=== PATIENT | male | born 1975 | race Caucasian/White ===

== ENCOUNTER 2024-06-20 06:18 | Emergency (ER) | payer BC ==
--- OUTSIDE RECORDS SUMMARY | 2024-06-20 06:21 | XMS REPORT | Continuity of Care Document ---
Author Name Unknown Address [address] [facility] [address] [place] [address] [facility] Address [address] [facility] [address] [place] [address] Care Team Providers Care Shank Faker Name Role Phone KVNG FLOOD Attending Clinician Unavailab NORA Rivera Attending Clinician Unavailable [id number] Attending Clinician Unavailable DR VERONICA RALPH Attending Clinician Unavailable DR VERONICA RALPH Admitting Clinician Unavailable Payers Payer Name Policy Type Policy Number Effective Date Expirati on Date Source [facility] 2 [id number] 2023 00:00:00 [id number] [id number] 00:00:00 Problems Condition Name Condition Details Condition Category Status Onset Date Resolution Date Last Treatment Date Treating Clinician Comments Source Well adult exam Well adult exam Disease Active 07-04 00:00: 00 Arti velasquez Primary hypertensi on Primary hypertensi on Disease Active 07-04 00:00: 00 Arti velasquez JACE (obstructi ve sleep apnea) JACE (obstructi ve sleep apnea) Disease Active 07-04 00:00: 00 Arti velasquez Allergies, Adverse Reactions, Alerts Allergy Name Allergy Type Status Severity Reaction(s) Onset Date Inactive Date Treating Clinician Comments Source No Known Drug Allergie s DA Active [facility] Social History Social Habit Start Date Stop Date Quantity Comments Source Gender identity Netta noah Armendariz - External Sexual orientation Nomi riki Armendariz - External History of tobacco use Snuff User Arti Armendariz - External Alcohol intake 2023-08-11 00:00:00 2023-08-11 00:00:00 Current drinker of alcohol (finding) Arti Armendariz - External History of Social function 2023-07-31 00:00:00 2023-07-31 00:00:00 Arti Armendariz - External Alcohol Comment 2023-06-30 00:00:00 2023-06-30 00:00:00 rarely Arti Armendariz - External Cigarettes smoked current (pack per day) - Reported 2023-06-30 00:00:00 2023-06-30 00:00:00 Arti Armendariz - Trina Cigarette pack-years 2023-06-30 00:00:00 2023-06-30 00:00:00 Arti Armendariz - External Tobacco use and exposure 2023-06-30 00:00:00 2023-06-30 00:00:00 User of smokeless tobacco Arti Armendariz - External Sex Assigned At 1975 00:00:00 1975 00:00:00 Arti Armendariz - Trina Smoking Status Start Date Stop Date Source Ex-smoker 2023-06-30 00:00:00 2023-06-30 00:00:00 Nomi riki Armendariz - External Medications Ordered Medication Name Filled Medication Name Start Date Stop Date Current Medication? Ordering Clinician Indication Dosage Frequency Signature (SIG) Comments Components Source Lisinopril 40 MG oral Tablet 2022-10 15:16: 34 08-11 00:00 :00 No Take by mouth. Arti velasquez Amlodipine Besylate 10 MG oral Tablet 2022-10 00:00: 00 Yes [id number] 10mg Take 1 tablet (10 mg total) by mouth daily. Arti velasquez Duloxetine HCl [address] Particles 2022-10 0 00:00: 00 Yes [id number] 30mg Take 1 capsule (30 mg total) by mouth daily. Arti velasquez Telmisartan 80 MG oral Tablet 07-04 08:25: 53 07-04 00:00 :00 No 80mg Take 1 tablet (80 mg total) by mouth daily. Arti velasquez Amlodipine Besylate 10 MG oral Tablet 07-04 08:25: 53 07-04 00:00 :00 No 10mg Take 1 tablet (10 mg total) by mouth daily. Arti velasquez Duloxetine HCl [address] Particles 07-04 08:: 07-04 00:00 :00 No 30mg Take 1 capsule (30 mg total) by mouth daily. Arti velasquez Duloxetine HCl [address] Particles 07-04 08:: 53 07-04 00:00 :00 No 60mg Take 1 capsule (60 mg total) by mouth daily. Arti velasquez Amlodipine Besylate 10 MG oral Tablet 07-04 00:00: 00 Yes [id number] 10mg Take 1 tablet (10 mg total) by mouth daily. Arti velasquez Telmisartan 80 MG oral Tablet 07-04 00:00: 00 Yes [id number] 80mg Take 1 tablet (80 mg total) by mouth daily. Arti velasquez Duloxetine HCl [address] Particles 07-04 00:00: 00 Yes [id number] 30mg Take 1 capsule (30 mg total) by mouth daily. Arti velasquez Duloxetine HCl [address] Particles 07-04 00:00: 00 Yes [id number] 60mg Take 1 capsule (60 mg total) by mouth daily. Arti velasquez Vital Signs Vital Name Observation Time Observation Value Comments S oureym Systolic blood pressure 2023-08-11 20:10:00 136 mm[Hg] Arti Seybo ld - External Diastolic blood pressure 2023-08-11 20:10:00 82 mm[Hg] Arti Seybo ld - External Heart rate 2023-08-11 20:10:00 88 /min Kelse y Seybold - External Body temperature 2023-08-11 20:10:00 36.61 Sheryl Arti Seybold - External Respiratory rate 2023-08-11 20:10:00 18 /min Arti Seybold - External Body height 2023-08-11 20:10:00 170.2 cm Netta ey Seybold - External Body weight 2023-08-11 20:10:00 116.121 kg Netta ey Seybold - External BMI 2023-08-11 20:10:00 40.10 kg/m2 Netta ey Seybold - External Oxygen saturation in Arterial blood by Pulse oximetry 2023-08-11 20:10:00 98 /min Arti Seybo ld - External Systolic blood pressure 2023-07-04 12:49:00 158 mm[Hg] Arti Seybo ld - External Diastolic blood pressure 2023-07-04 12:49:00 86 mm[Hg] Arti Seybo ld - External Heart rate 2023-07-04 12:49:00 85 /min Kelse y Seybold - External Body temperature 2023-07-04 12:49:00 36.44 Sheryl Arti Seybold - External Respiratory rate 2023-07-04 12:49:00 15 /min Arti Seybold - External Body height 2023-07-04 12:49:00 170.2 cm Netta ey Seybold - External Body weight 2023-07-04 12:49:00 119.75 kg Netta ey Seybold - External BMI 2023-07-04 12:49:00 41.35 kg/m2 Netta ey Seybold - External Height 2021-10-13 13:56:00 170.18 CM Weight 2021-10-13 13:56:00 115.84 KG Procedures Procedure Date / Time Performed Performing Clinicia n Source REP LT LW ARM SUBQ TISS FASC OPN 2021-10-13 00:00:00 [facility] Encounters Start Date/Time End Date/Time Encounter Type Admission Type Attending [facility] Care Department Encounter ID Source 2024-06-01 00:00:00 2024-06-01 00:00:00 Outpatient KVNG FLOOD [id number] [facility] 2024-04-02 00:00:00 2024-04-02 00:00:00 Outpatient KVNG FLOOD [id number] [facility] 2023-09-01 00:00:00 2023-09-01 00:00:00 Outpatient NORA LEVIN ARTI [id number] [facility] 2023-08-11 15:30:00 2023-08-11 15:30:00 Outpatient KVNG FLOOD ARTI [id number] Arti [facility] 2023-08-01 16:00:00 2023-08-01 16:00:00 Outpatient KVNG FLOOD ARTI [id number] Arti [facility] 2023-07-21 15:30:00 2023-07-21 15:30:00 Outpatient KVNG FLOOD ARTI [id number] Arti [facility] 2023-07-05 00:00:00 2023-07-05 00:00:00 Outpatient KVNG FLOOD [id number] Arti [facility] 2023-07-05 00:00:00 2023-07-05 00:00:00 Outpatient KVNG FLOOD [id number] Arti [facility] 2023-07-04 08:50:00 2023-07-04 08:50:00 Outpatient LAB90 ARTI ARTI [id number] [facility] 2023-07-04 08:00:00 2023-07-04 08:00:00 Outpatient KVNG FLOOD ARTI [id number] [facility] 2021-10-13 13:56:00 2021-10-13 15:12:00 Emergency E VERONICA RALPH [facility] [id number] [facility] Notes Date/Time Note Provider Source 2023-07-04 07:52:26 Formatting of this n ote is different from the original. Chief Complaint Patient presents with Physical Patient is fasting. Chikis Negron MA II [facility]
[2024-06-20] MEDS ORDERED: ONDANSETRON 4 MG/2 ML VIAL ONE ×2 (07:00→08:15)
[2024-06-20] MEDS ORDERED: FAMOTIDINE 20 MG/2 ML VIAL IV ONE (07:01)
[2024-06-20] MEDS ORDERED: MORPHINE 4 MG/ML SYR ONE (07:01)
[2024-06-20] MEDS ORDERED: NA CHLORIDE 0.9% 1,000 ML ONE ×2 (07:02→08:15)
[2024-06-20] MEDS ORDERED: TAMSULOSIN 0.4 MG SR CAP ONE (07:18)
[2024-06-20] MEDS ORDERED: KETOROLAC 30 MG/ML INJ ONE (07:18)
[2024-06-20] MEDS ORDERED: CEFTRIAXONE 1000 MG/VIAL ONE (07:18)
[2024-06-20 07:20] LABS: Specific Gravity > 1.030 (1.005-1.030); Sqamous Epithelial <5 /HPF (None Seen); Urine Bacteria None Seen /HPF (<20); Urine Bilirubin NEGATIVE (Negative); Urine Blood 3+ (OVER) (Negative); Urine Clarity Extremely Turbid (Clear); Urine Color Yellow (Yellow); Urine Culture Reflex Order NOT NEEDED; Urine Glucose NEGATIVE (Negative); Urine Ketones NEGATIVE (Negative); Urine Microscopic Reflex YN ORDER UMIC; Urine Mucus 4+ /HPF (None Seen); Urine Nitrite NEGATIVE (Negative); Urine Protein 2+ (Negative); Urine RBC >50 /HPF (None Seen); Urine Urobilinogen Normal (Normal); Urine WBC <5 /HPF (<5); Urine Yeast (Budding) Trace /HPF (None Seen); Urine pH 5.5 (5.0-7.0)
[2024-06-20 07:25] LABS: Absolute Basophils 0.1 K/uL (0-0.5); Absolute Eosinophils 0.1 K/uL (0-0.5); Absolute Lymphocytes (CBC) 1.4 K/uL (0.7-4.9); Absolute Monocytes 0.6 K/uL (0.1-1.3); Absolute Neutrophil 9.1 K/uL (1.8-8.0); Basophils % 0.6 % (0-1.3); Eosinophils % 0.6 % (0-4.4); Hemoglobin 15.1 g/dL (13.6-17.9); Lymphocytes % 12.2 % (15.3-44.8); MCH 29.9 pg (27.0-35.0); MCHC 33.6 g/dL (32.0-36.0); MCV 88.9 fL (80-100); MPV 7.4 fL (7.6-11.3); Monocytes % 5.7 % (3.3-12.3); Neutrophils % 80.9 % (41.7-73.7); Platelets 334 thou/uL (152-406); RBC Red Blood Cell Count 5.06 M/uL (4.33-5.43); Red Cell Distribution Width 13.6 % (12.1-15.2)
[2024-06-20 07:35] LABS: Anion Gap 8.9 mEq/L (5.0-15.0); Bilirubin Total 0.7 mg/dL (0.2-1.0); Globulin 4.2 g/dL (2.3-3.5); Potassium 3.9 mEq/L (3.5-5.1); Protein, Total 8.2 g/dL (6.4-8.2)
--- NOTE | 2024-06-20 07:59 | RAD REPORT ---
EXAM DESCRIPTION: CT - Stone Protocol - 06/20/2024 7:13 am CLINICAL HISTORY: Abdominal pain. COMPARISON: None. TECHNIQUE: Computed axial tomography of the abdomen pelvis was obtained without oral or IV contrast. Lack of IV and oral contrast limits evaluation of solid organs, appendix, bowel, and vessels. Hansen l reformatted images were obtained and reviewed. All CT scans are performed using dose optimization technique as appropriate and may include automated exposure control or mA/KV adjustment according to patient size. FINDINGS: A 4 millimeter calculus right UPJ with mild to moderate right hydronephrosis. Right perire nal stranding 3 millimeter calculus left kidney. No hydronephrosis. No ureteral calculus Borderline prostatic enlargement with calcification. Small bilateral inguinal hernias contain fat The liver, spleen, pancreas and adrenals appear grossly normal There is no evidence of diverticulitis. The appendix appears normal Mild stranding central mesenteric fat may indicate mild inflammation Cholecystectomy IMPRESSION: A 4 millimeter calculus right UPJ with [id number] right hydronephrosis
[2024-06-20] MEDS ORDERED: HYDROMORPHONE HCL 1 MG/ML INJ ONE (08:15)
--- NOTE | 2024-06-20 08:27 | EDPHYS ---
Physician Documentation [facility] Name: Joe Li Age: 48 yrs Sex: Male : 1975 Arrival Date: 06/20/2024 Time: 06:18 Bed 16 Private MD: ED Physician Carlos Barraza HPI: 06/20 06:57 This 48 yrs old Male presents to ER via Ambulatory with complaints of belkys Abdominal Pain, Low Back Pain. 06:57 The patient presents with pain that is acute. The symptoms are located in the right mid belkys back and right low back. The pain radiates to the right mid back and right low back. The problem was sustained from unknown cause. Modifying factors: The patient symptoms are alleviated by nothing, the patient symptoms are aggravated by any movement. Associated signs and symptoms: Pertinent positives: abdominal pain, nausea, vomiting. Severity of symptoms: At their worst the symptoms were moderate, severe, in the emergency department the symptoms are unchanged. The patient has not experienced similar symptoms in the past. Historical: - Allergies: 06:34 No Known Allergies; rg5 - Home Meds: 06:34 amlodipine oral [Active]; rg5 - PMHx: 06:34 Hypertensive disorder; rg5 - Immunization history:: Adult Immunizations not up to date. - Infectious Disease History:: Denies. - Social history:: Smoking status: Patient/guardian denies using tobacco, the patient reports quitting approximately 4 years ago. - Family history:: not pertinent. ROS: 06:57 Constitutional: Negative for fever, chills, and weight loss, Eyes: Negative for injury, belkys pain, redness, and discharge, ENT: Negative for injury, pain, and discharge, Neck: Negative for injury, pain, and swelling, Cardiovascular: Negative for chest pain, palpitations, and edema, Respiratory: Negative for shortness of breath, cough, wheezing, and pleuritic chest pain, Back: Negative for injury and pain, : Negative for injury, bleeding, discharge, and swelling, MS/Extremity: Negative for injury and deformity, Skin: Negative for injury, rash, and discoloration, Neuro: Negative for headache, weakness, numbness, tingling, and seizure, Psych: Negative for depression, anxiety, suicide ideation, homicidal ideation, and hallucinations, Allergy/Immunology: Negative for hives, rash, and allergies, Endocrine: Negative for neck swelling, polydipsia, polyuria, polyphagia, and marked weight changes, Hematologic/Lymphatic: Negative for swollen nodes, abnormal bleeding, and unusual bruising, 06:57 Abdomen/GI: Positive for abdominal pain, nausea and vomiting, abdominal cramps, of the anterior aspect of right lateral abdomen, posterior aspect of right lateral abdomen and right lower quadrant, Exam: 06:57 Constitutional: This is a well developed, well nourished patient who is awake, alert, belkys and in no acute distress. Head/Face: Normocephalic, atraumatic. Eyes: Pupils equal round and reactive to light, extra-ocular motions intact. Lids and lashes normal. Conjunctiva and sclera are non-icteric and not injected. Cornea within normal limits. Periorbital areas with no swelling, redness, or edema. ENT: Nares patent. No nasal discharge, no septal abnormalities noted. Tympanic membranes are normal and external auditory canals are clear. Oropharynx with no redness, swelling, or masses, exudates, or evidence of obstruction, uvula midline. Mucous membranes moist. Neck: Trachea midline, no thyromegaly or masses palpated, and no cervical lymphadenopathy. Supple, full range of motion without nuchal rigidity, or vertebral point tenderness. No Meningismus. Chest/axilla: Normal chest wall appearance and motion. Nontender with no deformity. No lesions are appreciated. Cardiovascular: Regular rate and rhythm with a normal S1 and S2. No gallops, murmurs, or rubs. Normal PMI, no JVD. No pulse deficits. Respiratory: Lungs have equal breath sounds bilaterally, clear to auscultation and percussion. No rales, rhonchi or wheezes noted. No increased work of breathing, no retractions or nasal flaring. Male : Normal genitalia with no discharge or lesions. Skin: Warm, dry with normal turgor. Normal color with no rashes, no lesions, and no evidence of cellulitis. MS/ Extremity: Pulses equal, no cyanosis. Neurovascular intact. Full, normal range of motion. Neuro: Awake and alert, GCS 15, oriented to person, place, time, and situation. Cranial nerves II-XII grossly intact. Motor strength 5/5 in all extremities. Sensory grossly intact. Cerebellar exam normal. Normal gait. Psych: Awake, alert, with orientation to person, place and time. Behavior, mood, and affect are within normal limits. 06:57 Abdomen/GI: Inspection: abdomen appears normal, Bowel sounds: active, all quadrants, Palpation: moderate abdominal tenderness, in the right upper quadrant and right lower quadrant, Liver: no appreciated palpable abnormalities, Hernia: not appreciated, Vital Signs: 06:30 BP 170 / 98; Pulse 99; Resp 19; Temp 98.3; Pulse Ox 97% on R/A; Pain 9/10; rg5 08:35 BP 138 / 86; Pulse 82; Resp 16; Pulse Ox 98% ; dd2 06:30 Pain Scale: Adult rg5 José Miguel Coma Score: 06:41 Eye Response: spontaneous(4). Motor Response: obeys commands(6). Verbal Response: rg5 oriented(5). Total: 15. MDM: 06:36 Patient medically screened. [facility] 07:03 Differential diagnosis: UTI. Data reviewed: vital signs, nurses notes, lab test belkys result(s), radiologic studies, CT scan. Consideration of Admission/Observation Escalation of care including admission/observation considered. 09:13 I considered the following discharge prescriptions or medication management in the rt emergency department Medications were administered in the Emergency Department. See MAR. Independent interpretation of the following test(s) in the Emergency Department CT Scan: My interpretation is Ureteral stone seen on interpretation of CT scan images. Counseling: I had a detailed discussion with the patient and/or guardian regarding the historical points, exam findings, and any diagnostic results supporting the discharge/admit diagnosis, lab results, radiology results, the need for outpatient follow up, to return to the emergency department if symptoms worsen or persist or if there are any questions or concerns that arise at home. Response to treatment: the patient's symptoms have markedly improved after treatment. 06/20 06:37 Order name: CBC with Diff; Complete Time: 07:35 [facility] 06/20 06:37 Order name: CMP; Complete Time: 07:37 [facility] 06/20 06:37 Order name: Lipase; Complete Time: 07:37 [facility] 06/20 06:37 Order name: Urinalysis w/ reflexes; Complete Time: 07:22 [facility] 06/20 06:48 Order name: CT Stone Protocol; Complete Time: 08:07 [facility] 06/20 06:37 Order name: IV Saline Lock; Complete Time: 07:10 [facility] 06/20 06:37 Order name: Labs collected and sent; Complete Time: 07:10 [facility] Administered Medications: 07:09 Drug: NS 0.9% IV 1000 ml IV at 1 bolus Per protocol; 1000 mL bolus Route: IV; Rate: 1 rg5 bolus; Site: left antecubital; 07:24 Follow up: Response: No adverse reaction dd2 08:15 Follow up: IV Status: Completed infusion; IV Intake: 1000ml dd2 07:09 Drug: Ondansetron IVP 4 mg IVP once; over 2 minutes Route: IVP; Site: left antecubital; rg5 07:24 Follow up: Response: No adverse reaction dd2 07:10 Drug: morphine IVP or IV 4 mg IVP once over 4 mins Route: IVP; Infused Over: 4 mins; rg5 Site: left antecubital; 07:25 Follow up: Response: No adverse reaction dd2 07:25 Drug: Famotidine IVP 20 mg IVP once; dilute with 10 mL 0.9% NaCl; give over 2 minutes dd2 Route: IVP; Site: left antecubital; 07:40 Follow up: Response: No adverse reaction dd2 07:25 Drug: Ketorolac IVP 30 mg IVP once Route: IVP; Site: left antecubital; dd2 07:40 Follow up: Response: No adverse reaction dd2 07:25 Drug: Flomax PO 0.4 mg PO once Route: PO; dd2 07:55 Follow up: Response: No adverse reaction dd2 07:25 Drug: Rocephin IV 1 grams IV at per protocol once; Given slow IV push per pharmacy dd2 instructions Route: IV; Rate: per protocol; Site: left antecubital; 07:36 Follow up: Response: No adverse reaction; IV Status: Completed infusion; IV Intake: [id number] 07:40 Follow up: Response: No adverse reaction dd2 08:21 Drug: NS 0.9% IV 1000 ml IV at 1 bolus Per protocol; 1000 mL bolus Route: IV; Rate: 1 dd2 bolus; Site: left antecubital; 08:36 Follow up: Response: No adverse reaction dd2 08:54 Follow up: IV Status: Order to discontinue infusion; IV Intake: 350ml dd2 08:21 Drug: HYDROmorphone IVP 1 mg IVP once Route: IVP; Site: left antecubital; dd2 08:36 Follow up: Response: No adverse reaction dd2 08:21 Drug: Ondansetron IVP 4 mg IVP once; over 2 minutes Route: IVP; Site: left antecubital; dd2 08:36 Follow up: Response: No adverse reaction dd2 Disposition Summary: 06/20/24 08:26 Discharge Ordered Notes: Location: Home rt Problem: new rt Symptoms: have improved rt Condition: Fair rt Diagnosis - Hydronephrosis with renal and ureteral calculous obstruction rt Followup: belkys - With: Private Physician - When: 2 - 3 days - Reason: Recheck today's complaints, Continuance of care, Re-evaluation by your physician Followup: belkys - With: Evens Ryan MD - When: 2 - 3 days - Reason: Recheck today's complaints, Re-evaluation by your physician Discharge Instructions: - Discharge Summary Sheet belkys - Kidney Stones belkys - Kidney Stones, [id number] belkys - Hydronephrosis belkys - Dietary Guidelines to Help Prevent Kidney Stones belkys Forms: - Medication Reconciliation Form rt - Antibiotic Education rt - Prescription Opioid Use rt - Patient Portal Instructions rt - Leadership Thank You Letter rt Prescriptions: - Flomax 0.4 mg Oral capsule - take 1 capsule ORAL route once; 20 capsule; Refills: 0, Product Selection belkys Permitted - acetaminophen-codeine 300-30 mg Oral tablet - take 2 tablet ORAL route every 6 hours; 20 tablet; Refills: 0, Product belkys Selection Permitted - ketorolac 10 mg Oral tablet - take 1 tablet ORAL route 3 times per day for 4 days; 12 tablet; Refills: 0, [facility] Product Selection Permitted - ondansetron 4 mg Oral Tablet,disintegrating - take 1 tablet ORAL route every 6 to 8 hours for 5 days; 20 tablet; Refills: 0, [facility] Product Selection Permitted Signatures: Dispatcher [employer] EDAdi Stanton MD MD cha [place], Ryan, MD MD rt Charly Skelton RN RN rg5 REJI NAVAS RN RN dd2 Corrections: (The following items were deleted from the chart) 07:03 06:37 Abdomen Pelvis W [id number].RAD.BRZ ordered. EDMS EDMS
--- NOTE | 2024-06-20 08:27 | ER ---
Nurse's Notes [facility] Name: Joe Li Age: 48 yrs Sex: Male : 1975 Arrival Date: 06/20/2024 Time: 06:18 Bed 16 Private MD: Diagnosis: Hydronephrosis with renal and ureteral calculous obstruction Presentation: 06/20 06:30 Chief complaint: Patient states: low back pain \T\ abdomen started around 4 am. rg5 Coronavirus screen: Vaccine status: Patient reports being unvaccinated. Client denies travel out of the [place] in the last 14 days. Ebola Screen: Patient negative for fever greater than or equal to 101.5 degrees Fahrenheit, and additional compatible Ebola Virus Disease symptoms. Initial Sepsis Screen: Does the patient meet any 2 criteria? No. Patient's initial sepsis screen is negative. Does the patient have a suspected source of infection? No. Patient's initial sepsis screen is negative. Risk Assessment: Do you want to hurt yourself or someone else? Patient reports no desire to harm self or others. Onset of symptoms was June 20, 2024. 06:30 Method Of Arrival: Ambulatory rg5 06:30 Acuity: SERINA 3 rg5 Triage Assessment: 06:34 General: Appears uncomfortable, Behavior is calm, cooperative, appropriate for age. rg5 Pain: Complains of pain in back and abdomen Quality of pain is described as aching, Pain began 2 hours ago. Is continuous. EENT: No deficits noted. Neuro: Level of Consciousness is awake, alert, obeys commands, Oriented to person, place, time, situation. Cardiovascular: Denies chest pain, Capillary refill < 3 seconds Patient's skin is warm and dry. Respiratory: Airway is patent Trachea midline Respiratory effort is even, unlabored, Respiratory pattern is regular, symmetrical. GI: Abdomen is round non-distended, Pt is actively vomiting clear fluid, Abd is soft and non tender. : No signs and/or symptoms were reported regarding the genitourinary system. Derm: Skin is intact, Skin is dry, Skin is normal, Skin temperature is warm. Musculoskeletal: Range of motion: intact in all extremities. Historical: - Allergies: 06:34 No Known Allergies; rg5 - Home Meds: 06:34 amlodipine oral [Active]; rg5 - PMHx: 06:34 Hypertensive disorder; rg5 - Immunization history:: Adult Immunizations not up to date. - Infectious Disease History:: Denies. - Social history:: Smoking status: Patient/guardian denies using tobacco, the patient reports quitting approximately 4 years ago. - Family history:: not pertinent. Screenin:41 [facility] ED Fall Risk Assessment (Adult) History of falling in the last 3 months, rg5 including since admission No falls in past 3 months (0 pts) Confusion or Disorientation No (0 pts) Intoxicated or Sedated No (0 pts) Impaired Gait No (0 pts) Mobility Assist Device Used No (0 pt) Altered Elimination No (0 pt) Score/Fall Risk Level 0 - 2 = Low Risk Oriented to surroundings, Maintained a safe environment, Educated pt \T\ family on fall prevention, incl call for assistance when getting out of bed, Hourly rounding (assess needs \T\ fall precautionary measures) done. Abuse screen: Denies threats or abuse. Nutritional screening: No deficits noted. Tuberculosis screening: No symptoms or risk factors identified. Assessment: 06:40 Reassessment: see triage assessment. rg5 08:56 GI: Bowel sounds present X 4 quads. dd2 Vital Signs: 06:30 BP 170 / 98; Pulse 99; Resp 19; Temp 98.3; Pulse Ox 97% on R/A; Pain 9/10; rg5 08:35 BP 138 / 86; Pulse 82; Resp 16; Pulse Ox 98% ; dd2 06:30 Pain Scale: Adult rg5 José Miguel Coma Score: 06:41 Eye Response: spontaneous(4). Motor Response: obeys commands(6). Verbal Response: rg5 oriented(5). Total: 15. ED Course: 06:23 Patient arrived in ED. gm2 06:29 Charly Skelton, RN is Primary Nurse. rg5 06:34 Triage completed. rg5 06:34 Arm band placed on right wrist. Patient placed on [employer], on pulse oximetry. rg5 06:36 Adi Mayorga MD is Attending Physician. belkys 06:41 Patient has correct armband on for positive identification. Bed in low position. Call rg5 light in reach. Side rails up X 1. 06:41 No provider procedures requiring assistance completed. rg5 07:12 CBC with Diff Sent. dd2 07:12 CMP Sent. dd2 07:12 Lipase Sent. dd2 07:12 Urinalysis w/ reflexes Sent. dd2 07:13 CT Stone Protocol In Process Unspecified. EDMS 07:37 Attending Physician role handed off by Adi Mayorga MD rt 07:37 Carlos Barraza MD is Attending Physician. rt 08:26 Evens Ryan MD is Referral Physician. rt 08:57 Provided Education on: call light, meications. dd2 08:57 IV discontinued, intact, bleeding controlled, No redness/swelling at site. Pressure dd2 dressing applied. Administered Medications: 07:09 Drug: NS 0.9% IV 1000 ml IV at 1 bolus Per protocol; 1000 mL bolus Route: IV; Rate: 1 rg5 bolus; Site: left antecubital; 07:24 Follow up: Response: No adverse reaction dd2 08:15 Follow up: IV Status: Completed infusion; IV Intake: 1000ml dd2 07:09 Drug: Ondansetron IVP 4 mg IVP once; over 2 minutes Route: IVP; Site: left antecubital; rg5 07:24 Follow up: Response: No adverse reaction dd2 07:10 Drug: morphine IVP or IV 4 mg IVP once over 4 mins Route: IVP; Infused Over: 4 mins; rg5 Site: left antecubital; 07:25 Follow up: Response: No adverse reaction dd2 07:25 Drug: Famotidine IVP 20 mg IVP once; dilute with 10 mL 0.9% NaCl; give over 2 minutes dd2 Route: IVP; Site: left antecubital; 07:40 Follow up: Response: No adverse reaction dd2 07:25 Drug: Ketorolac IVP 30 mg IVP once Route: IVP; Site: left antecubital; dd2 07:40 Follow up: Response: No adverse reaction dd2 07:25 Drug: Flomax PO 0.4 mg PO once Route: PO; dd2 07:55 Follow up: Response: No adverse reaction dd2 07:25 Drug: Rocephin IV 1 grams IV at per protocol once; Given slow IV push per pharmacy dd2 instructions Route: IV; Rate: per protocol; Site: left antecubital; 07:36 Follow up: Response: No adverse reaction; IV Status: Completed infusion; IV Intake: [id number] 07:40 Follow up: Response: No adverse reaction dd2 08:21 Drug: NS 0.9% IV 1000 ml IV at 1 bolus Per protocol; 1000 mL bolus Route: IV; Rate: 1 dd2 bolus; Site: left antecubital; 08:36 Follow up: Response: No adverse reaction dd2 08:54 Follow up: IV Status: Order to discontinue infusion; IV Intake: 350ml dd2 08:21 Drug: HYDROmorphone IVP 1 mg IVP once Route: IVP; Site: left antecubital; dd2 08:36 Follow up: Response: No adverse reaction dd2 08:21 Drug: Ondansetron IVP 4 mg IVP once; over 2 minutes Route: IVP; Site: left antecubital; dd2 08:36 Follow up: Response: No adverse reaction dd2 Medication: 06:41 VIS not applicable for this client. rg5 Intake: 07:36 IV: 10ml; Total: 10ml. dd2 08:15 IV: 1000ml; Total: 1010ml. dd2 08:54 IV: 350ml; Total: 1360ml. dd2 Outcome: 08:26 Discharge ordered by . rt 08:56 Discharged to home ambulatory, dd2 08:56 Condition: stable 08:56 Discharge instructions given to patient, Instructed on discharge instructions, follow up and referral plans. medication usage, Demonstrated understanding of instructions, follow-up care, medications, Prescriptions given X 4, 08:57 Patient left the ED. dd2 Signatures: Dispatcher [employer] EDAdi Stanton MD MD cha [place], Ryan, MD MD rt Mitchell, Ginger 2 Charly Skelton RN RN rg5 REJI NAVAS RN RN dd2
[2024-06-20 09:02] VITALS: TEMP 98.3
[2024-06-20 09:05] VITALS: BP 138/86; O2SAT 98
== END 2024-06-20 08:57 | disposition home or self-care (01) ==
LOC: ER 06:18
DX: N13.2 Hydronephrosis with renal and ureteral calculous obstruction (principal); I10 Essential (primary) hypertension
CPT/HCPCS: 96361; 85025; 81001; 36415; 83690; 80053; 76377; 74176; 96375; 96374; 99284; J1170; J2405 ×2; J7030 ×2; J0696